=== PATIENT | male | born 2005 | race Hispanic/Latino ===

== ENCOUNTER → 2025-09-11 | Outpatient (CLI) | payer OTHER, SELFPAY ==
--- NOTE | 2025-09-11 10:00 | RAD_ITS ---
PROCEDURE: CHEST PA AND LATERAL 09/11/2025 REASON FOR EXAM: ACUTE COUGH/SHORTNESS OF BREATH TECHNIQUE: Procedure Code: RADCXR Modality: DX Procedure: CHEST PA AND LATERAL COMPARISON: None. RAD/Chest PA and Lateral IMPRESSION: Lungs appear clear throughout. No pleural effusion or pneumothorax is noted. The cardiomediastinal silhouette is within the normal range. No acute osseous change is seen. Negative examination. Reading Location: [place] [id number]
--- NOTE | 2025-09-11 10:09 | VDLE_ITS ---
Reason For Study Reason For Study: Right leg pain RIGHT GSV is normal. CFV is compressible, spontaneous, phasic, competent and demonstrates normal augmentation. FV is compressible, spontaneous, phasic, competent and demonstrates normal augmentation. POP V is compressible, spontaneous, phasic, competent and demonstrates normal augmentation. T/P Trunk is compressible. PTV is compressible. RT PerV is compressible. Procedure This is a venous duplex using B-mode, color flow and spectral Doppler. Exam performed in department. A preliminary report was called and/or faxed to Dr. Fernandez. VL/Venous Duplex US, Unilateral Interpretation Summary Deep veins of the right lower extremity are patent and compressible segmentally . There is no evidence of right lower extremity deep vein thrombosis. Valvular competence appears intact within the p roximal deep venous system on the right . The right great saphenous vein appears patent and compressible segmentally. Ordering Physician: Bismark Fernandez Referring Physician: Ruben Welch Performed By: Haley Parham RVT
== END | disposition home or self-care (01) ==
PROVIDERS: PCP Nurse Practitioner Primary Care; Referring Provider Student in an Organized Health Care Education/Training Program; Visit Provider Student in an Organized Health Care Education/Training Program
DX: R05.1 Acute cough (principal); R06.02 Shortness of breath; M79.661 Pain in right lower leg
CPT/HCPCS: 71046; 93971